=== PATIENT | male | born 1950 | race Caucasian/White ===

== ENCOUNTER 2017-02-26 07:57 | Emergency (ER) | payer OTHER ==
[2017-02-26 08:01] VITALS: BP 186/85; PULSE 77; RESP 18; TEMP 97.5; O2SAT 97
--- NOTE | 2017-02-26 08:03 | EDPHY ---
H & P Stated Complaint: Cut on R ring finger Time Seen by Provider: 02/26/17 07:58 HPI/ROS: Chief Complaint: Laceration right 4th finger HPI: The patient presents to the ED after he sustained a 1 cm laceration to his right 4th finger when he accidentally cut himself on glass at home today. The patient denies any associated numbness or weakness. The patient reports his tetanus shot is up-to-date. He denies any additional acute complaints. REVIEW OF SYSTEMS: Neuro: no headache, numbness, weakness Musculoskeletal: as above Skin: As above Source: Patient Exam Limitations: No limitations - Personal History Current Tetanus Diphtheria and Acellular Pertussis (TDAP): Yes - Medical/Surgical History Other PMH: HTN - Social History Smoking Status: Former smoker - Physical Exam Exam: General Appearance: Alert, no distress Extremities: 1 cm superficial laceration noted to the distal right 4th finger. Neurological: Sensation intact to light touch, normal motor function in right hand. Constitutional: Initial Vital Signs Temperature (C) 36.4 C 02/26/17 07:58 Heart Rate 77 02/26/17 07:58 Respiratory Rate 18 02/26/17 07:58 Blood Pressure 186/85 H 02/26/17 07:58 O2 Sat (%) 97 02/26/17 07:58 O2 Delivery Mode Room Air Home Medications: Medication Instructions Recorded Valsartan [Diovan (*)] 40 mg PO 02/26/17 amLODIPine BESYLATE [Norvasc 5 mg 5 mg PO DAILY 02/26/17 (*)] Medical Decision Making Procedures: Procedure: Laceration repair with skin glue Verbal consent was obtained from the patient. The 1 cm laceration on the right 4th finger. The wound cleaned per protocol There were no deep structures involved. No tendon injury was identified. The wound was repaired with tissue adhesive. The procedure was performed by myself. Departure - Departure Disposition: Home, Routine, Self-Care Clinical Impression: Finger laceration Qualifiers: Encounter type: initial encounter Damage to nail status: without damage Foreign body presence: without foreign body Laterality: right Condition: Good Instructions: Skin Adhesive Care (ED) Referrals: ORLANDO ANN [Primary Care Provider] - As per Instructions
== END 2017-02-26 08:31 | disposition home or self-care (01) ==
PROC: 0HQFXZZ Repair Right Hand Skin, External Approach (ICD-10-PCS; principal; 2017-02-26)
DX: S61.214A Laceration without foreign body of right ring finger without damage to nail, initial encounter (principal); I10 Essential (primary) hypertension; Z87.891 Personal history of nicotine dependence; W25.XXXA Contact with sharp glass, initial encounter; Y99.8 Other external cause status

== ENCOUNTER 2017-08-16 10:06 | Emergency (ER) | payer OTHER ==
[2017-08-16 10:15] VITALS: BP 154/86
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
== END 2017-08-16 12:37 | disposition home or self-care (01) ==
DX: S20.212A Contusion of left front wall of thorax, initial encounter (principal); S86.912A Strain of unspecified muscle(s) and tendon(s) at lower leg level, left leg, initial encounter; I10 Essential (primary) hypertension; Z87.891 Personal history of nicotine dependence; V18.4XXA Pedal cycle driver injured in noncollision transport accident in traffic accident, initial encounter; Y92.410 Unspecified street and highway as the place of occurrence of the external cause; Y99.8 Other external cause status; Y93.55 Activity, bike riding

== ENCOUNTER → 2017-10-03 | Outpatient (CLI) | payer OTHER | DX: Z13.6 Encounter for screening for cardiovascular disorders (principal); Z87.891 Personal history of nicotine dependence ==